=== PATIENT | male | born 1975 | race Asian ===

== ENCOUNTER → 2023-01-19 09:32 | Outpatient (BNVA) | payer OTHER, SELFPAY | PROVIDERS: Visit Provider Physician Assistant ==

== ENCOUNTER 2023-11-02 14:22 | Outpatient (AMB) | payer OTHER, SELFPAY ==
--- NOTE | 2023-11-02 14:24 | HO.SPINEOV ---
Intake Intake Visit Reasons: follow up f/u from Intake Note: Mr. Almeida is here today for a F/u Program Schedule Clerk Required: No Assessment & Plan Assessment & Plan (1) Cervical radiculopathy: Code(s): M54.12 - Radiculopathy, cervical region (2) Cervical myelopathy: Code(s): G95.9 - Disease of spinal cord, unspecified Plan: Mr Almeida is here in follow-up today. This is a gentleman who from our previous note we have been following for what was at the time asymptomatic cervical stenosis. He tells me that since our last office visit, he was doing okay until a few months ago when he started to notice pain going down his arms. It goes into his hands in his hands will go numb. At nighttime he will often feel significant amounts of cramping and numbness in his hands with changing of positions of his neck. Sometimes he will wake up in the morning in his arms will be cramped into position where he has to move them to try to loosen them up. He has noticed numbness of his hands in the morning as well. There also shock-like feelings which go down his body all through his chest and into his legs. On my exam he is has mild hand weakness but no hyperreflexia. I reviewed his imaging at [facility] again. It is almost a year old and it shows significant left-sided spinal cord compression at C3-4, C4-5 as well as moderate to severe stenosis at C5-6. At this point I think we need a new MRI as his symptoms are changing and we need to be sure that there is no new finding the needs to be addressed but I anticipate he is going to get a multilevel surgery, likely anterior cervical fusion. Once the urgent MRI has been completed, I will call him with the results. Total amount of time spent in this visit was 20 minutes in discussion of symptoms, previous cervical MRI imaging results and subsequent plan of care Donaldo Betancourt MD,PhD [facility] Plan see above Orders: Orders MR cervical spine wo con Today G95.9 - Disease of spinal cord, unspecified, M54.12 - Radiculopathy, cervical region Coding Level of Care Code Est Pt Level 3 (90387) Diagnoses Cervical radiculopathy M54.12 Cervical myelopathy G95.9
== END 2023-11-02 14:50 | disposition home or self-care (01) ==
PROVIDERS: Visit Provider Physician Assistant
DX: M54.12 Radiculopathy, cervical region (principal); G95.9 Disease of spinal cord, unspecified
CPT/HCPCS: 99213

== ENCOUNTER → 2023-11-02 14:22 | Outpatient (BNVA) | payer OTHER, SELFPAY | PROVIDERS: Visit Provider Physician Assistant | DX: M54.12 Radiculopathy, cervical region (principal); G95.9 Disease of spinal cord, unspecified; M48.02 Spinal stenosis, cervical region | CPT/HCPCS: 99212 ==

== ENCOUNTER 2023-12-28 11:05 | Outpatient (REF) | payer OTHER, SELFPAY | END 2023-12-28 11:06 | disposition home or self-care (01) | LOC: CF 11:05 | DX: G95.9 Disease of spinal cord, unspecified (principal) | CPT/HCPCS: 99212 ==

== ENCOUNTER 2023-12-28 11:34 | Outpatient (AMB) | payer OTHER, SELFPAY ==
--- NOTE | 2023-12-28 11:36 | A.SPINEOV_ITS ---
Intake Visit Reasons: discuss MRI Intake Note: Mr. Almeida is here today to discuss MRI Director Clinical Pharmacology Required: No Assessment & Plan Assessment & Plan (1) Cervical myelopathy: Code(s): G95.9 - Disease of spinal cord, unspecified Category: Medical Plan Mr Almeida is following up today. Please refer to my previous note for the specifics of the problems. He continues to have numbness of both of his arms with feelings of weakness, now he started to get weakness on the left hand as well as the right. He is still getting the cramping sensations down his arms. Obtained a new MRI done at [facility] and this shows that he has ongoing slightly progressed disc osteophytes and disc herniations at C3-4 and C4-5 causing severe spinal cord compression, primarily on the left. It looks like he may have a component of calcification of his posterior longitudinal ligament as well as there is still some compression behind the body of C4. There is moderate stenosis at C5-6 and C6-7. Although the radiologist is equivocal about his finding, it appears to me he has new cord signal change behind the body of C4 that was not present on his previous MRI done at [facility]. On my exam today he is continuing to demonstrate weakness of his hands but no hyperreflexia. I think this may just be an outlier that he does not have hyperreflexia. There is need here for decompression of the spinal cord. I sat down with the patient and went over his films at length including his old films and explained to him that the progression of his myelopathy from being asymptomatic to now being symptomatic getting slightly worse would generally mean that we would proceed with surgery. Because of the calcifications behind the body of C4, we may need to do a corpectomy. I will review his films with Dr. Betancourt and get back to the patient with a final plan. The patient was counseled that the ultimate goal of surgery would be to prevent him from getting worse but not necessarily guarantee him that he would be able to return to normal function. I highlighted the fact that I would not wait long about making a decision about surgery and that if he starts to experience anymore decline we should expedite things as he is young. The risks and benefits of surgery were discussed with him for consideration of an anterior cervical approach. Total amount of time spent in this visit was 20 minutes in discussion of symptoms, cervical MRI imaging results and subsequent plan of care Donaldo Valenzuelanings MD,PhD [facility] Coding Level of Care Code Est Pt Level 3 (03824) Diagnoses Cervical myelopathy G95.9
== END 2023-12-28 12:11 | disposition home or self-care (01) ==
PROVIDERS: Visit Provider Physician Assistant
DX: G95.9 Disease of spinal cord, unspecified (principal)
CPT/HCPCS: 99213

== ENCOUNTER 2024-01-09 08:35 | Outpatient (REF) | payer OTHER, SELFPAY ==
--- NOTE | ~2024-01-09 | CT_ITS ---
EXAMINATION: CT CERVICAL SPINE WITHOUT CONTRAST CLINICAL INFORMATION: Ossification of posterior longitudinal ligament, surgical planning COMPARISON: MRI of cervical spine on 11/27/2023 at outside facility TECHNIQUE: Multiple 2.0 and 0.6 mm axial images were obtained from base of skull to T1 levels without IV contrast enhancement. Sagittal and coronal 2.0 mm bone window images were reconstructed from axial image data. This CT examination was performed using dose optimization techniques as appropriate, variously including the following: *Automated exposure control *Adjustment of mA and/or kV according to patient size (this includes techniques or standardized protocols for targeted exams where dose is matched to indication/reason for exam; i.e. extremities or head) *Use of iterative reconstruction technique DLP: 566 mGy-cm FINDINGS: C1/C2: Bony structures are intact with normal alignment. There is no spinal stenosis. C2/C3: Bony structures are intact with normal alignment. There is no spinal stenosis. Bilateral C2/C3 neuroforamina are patent. Bilateral apophyseal joints are intact with normal alignment. C3/C4: Bony structures are intact with normal alignment. There is no spinal stenosis. Bilateral C3/C4 neuroforamina are patent. Bilateral apophyseal joints are intact with normal alignment. 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 At superior border of C4, the left posterior ossified posterior longitudinal ligament causes marked spinal stenosis with AP diameter of the spinal canal reduced to 7.8 mm. C4/C5: Bony structures are intact with normal alignment. There is no spinal stenosis. Bilateral C4/C5 neuroforamina are patent. Bilateral apophyseal joints are intact with normal alignment. C5/C6: Bony structures are intact with normal alignment. There is no spinal stenosis. There is marked asymmetric left C5/C6 neuroforaminal stenosis. Bilateral apophyseal joints are intact with normal alignment. Short segment ossification of posterior longitudinal ligament is seen along the posterior border of C6, down to C6-C7 junction, indenting the anterior thecal sac. There is resulting mild spinal stenosis with AP diameter of the spinal canal reduced to 8.9 mm. C6/C7: Bony structures are intact with normal alignment. There is no spinal stenosis. Bilateral C6/C7 neuroforamina are patent. Bilateral apophyseal joints are intact with normal alignment. C7/T1: Bony structures are intact with normal alignment. There is no spinal stenosis. Bilateral C7/T1 neuroforamina are patent. Bilateral apophyseal joints are intact with normal alignment. CT/CT cervical spine wo IV con IMPRESSION: 1. 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 2. At superior border of C4, the left posterior ossified posterior longitudinal ligament causes marked spinal stenosis with AP diameter of the spinal canal reduced to 7.8 mm. 3. Short segment ossification of posterior longitudinal ligament is seen along the posterior border of C6, down to C6-C7 junction, indenting the anterior thecal sac. There is resulting mild spinal stenosis with AP diameter of the spinal canal reduced to 8.9 mm. 4. Marked asymmetric left C5/C6 neuroforaminal stenosis. 5. Findings are similar to the appearance on MRI of cervical spine on 11/27/2023.
== END 2024-01-09 08:36 | disposition home or self-care (01) ==
LOC: HO.CT 08:35
PROVIDERS: Visit Provider Physician Assistant
DX: G95.9 Disease of spinal cord, unspecified (principal)
CPT/HCPCS: 72125

== ENCOUNTER 2024-01-18 10:26 | Outpatient (AMB) | payer OTHER, SELFPAY ==
--- NOTE | 2024-01-18 10:35 | A.SPINEOV_ITS ---
Intake Visit Reasons: CT follow up Intake Note: Mr. Almeida is here today to F/u on CT Results. Still Operator Required: No Assessment & Plan Assessment & Plan (1) Cervical myelopathy: Code(s): G95.9 - Disease of spinal cord, unspecified Category: Medical Plan Mr Almeida came back to review his cervical CT done at [place]. Dr. Betancourt and I reviewed it and believe the best approach would be to do a two-level anterior diskectomy and fusion C3-4 and C4-5 as a posterior corpectomy. We believe that with a [employer] drill we would be able to drill off the edges of the endplates at both levels to be able to obtain enough of a decompression with the calcified disc herniation that we see in both of these disc levels in order to avoid doing a full corpectomy. We updated the patient on the plan. The plan will be for surgery in late May. He understands that if his symptoms progress he should call me and we will move his surgery up. Pt was given risk and benefits of surgery including but not limited to infection, hematoma , nerve injury,durotomy, weakness,bowel/bladder injury, persistent pain, focal hoarse as well as the option to continue with conservative treatment and patient wishes to proceed with surgery. Pt is aware they should stop their motrin, aspirin 7 days prior to surgery. All questions were answered to the best of our ability. If there is anything about this patients medical history that we have overlooked or concerns you have about us proceeding with surgery we would appreciate any input you can offer. Total amount of time spent in this visit was 20 minutes in discussion of symptoms, cervical CT imaging results and subsequent plan of care Donaldo Betancourt MD,PhD [facility] Coding Level of Care Code Est Pt Level 3 (61964) Diagnoses Cervical myelopathy G95.9
== END 2024-01-18 11:18 | disposition home or self-care (01) ==
PROVIDERS: Visit Provider Physician Assistant
DX: G95.9 Disease of spinal cord, unspecified (principal)
CPT/HCPCS: 99213

== ENCOUNTER → 2024-01-18 10:26 | Outpatient (BNVA) | payer OTHER, SELFPAY | PROVIDERS: Visit Provider Physician Assistant | DX: G95.9 Disease of spinal cord, unspecified (principal) | CPT/HCPCS: 99212 ==

== ENCOUNTER 2024-02-19 08:26 | Outpatient (REF) | payer OTHER, SELFPAY | END 2024-02-19 08:27 | disposition home or self-care (01) | LOC: CF 08:26 | DX: Z13.89 Encounter for screening for other disorder (principal) ==

== ENCOUNTER 2024-05-14 10:09 | Inpatient (IN) | payer OTHER, SELFPAY ==
[2024-05-12 13:12] VITALS: BMI 30.7
--- NOTE | 2024-05-13 09:20 | P.CONAN_ITS ---
Documented by User: Shayy Bellamy NP 05/13/24 09:30 HPI - Anesthesia Eval Consult details Narrative: 48yo M for C3-4,C4-5 Ant Cerv Discectomy w/ fusion PMFSH Active Problems Active Problems: All Active Problems Cervical myelopathy (Acute) Cervical radiculopathy (Acute) Past Medical History Medical History (Updated 05/12/24 @ 13:15 by Vibha Alcaraz RN) Hepatitis B Alpha thalassemia trait Fatty liver Elevated cholesterol HTN (hypertension) Benign paroxysmal positional vertigo Cervical myelopathy Cervical radiculopathy Surgical History Surgical History (Updated 05/12/24 @ 13:15 by Vibha Alcaraz RN) Hx of appendectomy Social History Social History (Updated 05/12/24 @ 10:06 by Vibha Alcaraz RN) Are you a primary skin care technician to a significant other at home: No Do you presently have visiting nurse or other home services: No Patient Tobacco Use Status: Never used Tobacco Second Hand Smoke Exposure: No Use of substances other than those prescribed or required for medical reasons: No Have you been hit, kicked, punched, or otherwise hurt by someone within the past year? If so, by whom?: No Are you DNR?: No Advance Directives: No ( is primary contact) Advance Directives Information Provided: Yes (as above noted) Advance Directives on File: No Recently lost weight without trying: No Eating poorly because of decreased appetite: No Nutrition Risks: No Nutritional Risk Poor oral hygiene: No Meds Allergies Allergy/AdvReac Type Severity Reaction Status Date / Time oxycodone Allergy Unknown Vomiting Verified 05/12/24 13:15 Home Medications ?Medication ?Instructions ?Recorded ?Confirmed ?Last Taken ?Type losartan 50 mg tablet 50 mg QAM 05/12/24 05/12/24 Unknown History simvastatin 20 mg tablet 20 mg PO QAM 05/12/24 05/12/24 Unknown History Exam Height,Weight and Vital Signs: Height 5 ft 6 in Weight 86.183 kg Pertinent Lab Results Pertinent Lab Results: CBC and BMP 03/2024 wnl from outside facility Assessment and Plan Assessment Anesthesia Assessment: Chart Reviewed Documented by User: Denisha Marshall MD 05/14/24 12:31 [facility] Past Medical History Medical History (Updated 05/12/24 @ 13:15 by Vibha Alcaraz RN) Hepatitis B Alpha thalassemia trait Fatty liver Elevated cholesterol HTN (hypertension) Benign paroxysmal positional vertigo Cervical myelopathy Cervical radiculopathy Family History Family history of problems with anesthesia: No Surgical History Surgical History (Updated 05/12/24 @ 13:15 by Vibha Alcaraz, DAYNA) Hx of appendectomy History of Problems with Anesthesia: No Social History Social History (Updated 05/12/24 @ 10:06 by Vibha Alcaraz RN) Are you a primary skin care technician to a significant other at home: No Do you presently have visiting nurse or other home services: No Patient Tobacco Use Status: Never used Tobacco Second Hand Smoke Exposure: No Use of substances other than those prescribed or required for medical reasons: No Have you been hit, kicked, punched, or otherwise hurt by someone within the past year? If so, by whom?: No Are you DNR?: No Advance Directives: No ( is primary contact) Advance Directives Information Provided: Yes (as above noted) Advance Directives on File: No Recently lost weight without trying: No Eating poorly because of decreased appetite: No Nutrition Risks: No Nutritional Risk Poor oral hygiene: No Meds Allergies Allergy/AdvReac Type Severity Reaction Status Date / Time oxycodone Allergy Unknown Vomiting Verified 05/12/24 13:15 Home Medications ?Medication ?Instructions ?Recorded ?Confirmed ?Last Taken ?Type losartan 50 mg tablet 50 mg QAM 05/12/24 05/12/24 Unknown History simvastatin 20 mg tablet 20 mg PO QAM 05/12/24 05/12/24 Unknown History Exam Airway Mallampati Class: III (thick neck) TM Dist: >3cm Neck ROM: Full Heart: rrr Lungs: cta Assessment and Plan Assessment Anesthesia Assessment: Anesthesia Plan Discussed Final Anesthetic Review Family History of Problems with Anesthesia: No History of Problems with Anesthesia: No NPO: Yes ASA Class: II Final Preanesthetic Review: No Changes in Pt Med Stat, Meds/Allgs Chart Reviewed and Consent Obtained/Reviewed Patient Risk: Intermediate Procedure Risk: Intermediate Anesthetic Plan Anesthetic Plan: GA Disposition: Standard PACU
[2024-05-14] VITALS (9 sets, daily range): BP systolic 134–162; BP diastolic 87–102; PULSE 58–81; RESP 12–18; TEMP 36.3–36.8; O2SAT 93–99
--- NOTE | ~2024-05-14 | FL_ITS ---
EXAMINATION: INTRAOPERATIVE FLUOROSCOPY CERVICAL SPINE CLINICAL INFORMATION: C3-C5 ACDF COMPARISON: CT cervical spine 01/09/2024. TECHNIQUE: Intraoperative fluoroscopic imaging was provided to Dr. Sidney Betancourt during C3-C5 ACDF. Total radiographic images: 10 Exposure time: 12.8 seconds Dose area product: 0.8926 Gy-cm2 FINDINGS/ FL/FL guidance in OR IMPRESSION: Multiple intraoperative fluoroscopic images and/or radiographs demonstrate stages of C3-C5 ACDF. Please see Dr. Lu's operative note for complete details. Electronically signed by: Rod Jamison MD 05/14/2024 10:30 PM EDT
[2024-05-14] MEDS: methocarbamoL 750 MG TABLET PO (10:30)
[2024-05-14] MEDS: Gabapentin 300 MG CAPSULE PO (10:31)
[2024-05-14] MEDS: Lactated Ringers 1,000 ML 100 ML IVCONT (10:38)
--- NOTE | 2024-05-14 11:25 | MHC.SHP ---
Pre-Procedural Eval Section A - 24 Hr Update-Section A only Date of Service: 05/14/24 The patient is an INPATIENT: No Section B - Complete if H&P > 30 days Chief Complaint: S/P C3-5 ACDF Details of Present Illness: Cervical myelopathy Allergies: Allergies Allergy/AdvReac Type Severity Reaction Status Date / Time oxycodone Allergy Unknown Vomiting Verified 05/12/24 13:15 Review of Systems Sugical H&P ROS: Negative: Constitution, Cardiovascular, Respiratory, Psychiatric, Hem-Onc, Allergic/Immunologic, Gastrointestinal, Genitourinary, Musculoskeletal, Integumentary, Endocrine and Eyes/Ears/Nose/Throat and Yes, Specify: Neurological (Bilateral arm numbness and weakness) Exam Surgical H&P Exam: Normal: HEENT, Normal: Heart, Normal: Lungs, Normal: Extremities, Normal: Abdomen and Normal: Skin and Significant Findings: Neurological (Hyperreflexia, hypoesthesia bilateral arms) Plan I have reviewed the history and physical and performed a pertinent physical examination on my patient. No changes have occurred unless specified. Time Spent With Patient Time: Ten __ minutes.
--- NOTE | 2024-05-14 15:27 | W.PM.OPN ---
Operative Note Operative Note Date of Service: 05/14/24 Narrative: Preoperative Diagnosis: Progressive cervical myelopathy due to C3-4 and C4-C5 spinal cord compression Procedure: C3-C4, C4-C5 Anterior discectomy, arthrodesis and implantation cage ; C3-C5 anterior instrumentation ; local autograft; microscope Informed Consent was obtained for this operation. I have explained the nature, purpose and benefits of the operation. I have discussed the risks and benefit of the operation including possible complications or adverse events with patient/family. Alternative(s) were discussed with the patient with their relative benefits and risks as well as the consequences of not accepting the operation were included in obtaining consent. Surgeon: JOSEPH GREEN MD, PHD Procedure Assisted By: ANGIE Donis Description of Procedure: This 48-year-old male is suffering from progressive cervical myelopathy predominantly involving the arms. An MRI shows severe spinal cord compression C3-C4 and C4-C5. An additional CT scan shows that it mainly involves calcification of the disc and possibly of the posterior longitudinal ligament. Patient is of descent and there are no for increase risk of suffering from OPLL. Patient was made aware that this could result in opening of the dura. The procedure and other complications were explained. The patient was consented. The patient was brought to the operating room and endotracheally intubated. The patient was put in supine position with slight extension of the neck. Prep and drape was done followed by timeout. A mid cervical incision was made followed by opening of the platysma. The prevertebral fascia was reached following the natural planes while the physician special education educational assistant provided manual retraction. The prevertebral fascia was opened to expose the disc space. A spinal needle was placed in the disk space to confirm the correct level with xray. The longus colli muscles were released bilaterally and a self retaining retractor was inserted. An initial diskectomy was done at C3-4 and C4-5 towards the posterior annulus. Then two Yeso pins were placed in the C3 and C4 vertebral bodies and distraction was give over the interspace. The discectomy was completed toward the posterior annulus of the disc. The microscope was brought in. The remainder of the discectomy was completed. The posterior ligament was opened on the right side and resected towards the contralateral side where the bony compression was. Fortunately at this level there was no ossification of the posterior longitudinal ligament and I was able to remove the calcified disc from the spinal cord which resulted in a good decompression of the underlying spinal cord. The resected osteophytes were saved for autograft. Bilateral foraminotomies were done. The endplates were prepared after which a 7 mm cage filled with autograft was inserted into the disc space. A separate attached plate was locked down with 2 x 12 mm screws as anterior instrumentation. Then attention was turned to the C4-C5 level. Yeso pin was placed in the body of C5 and distraction was giving over the interspace. The diskectomy was completed and the posterior longitudinal ligament was opened on the right side S again decompression was more eccentric towards the left side. This time a large osteophyte complex was found producing severe compression of the spinal cord. Carefully I removed the ossification with a 1. And eventually 2. Kerrison. There was a small calcified layer over the ligament which I tried to remove with a 1. Kerrison that resulted in violation of the outer layer of the dura but the benjamín remained intact. There was also ongoing compression in the left caudal corner under the C5 vertebral body. I was able to mostly remove it with a 1. Kerrison and a curved correct. But again ossification of the ligament was encountered an I had to stop to prevent further dural tears. Overall, a sufficient decompression of the spinal cord was obtained. The dural defect was covered with a piece of DuraGen. The endplates were prepared after which a 6 mm cage was inserted filled with autograft. A separate attached plate was locked down with 2 x 12 mm screws is anterior instrumentation. Final x-rays in AP and lateral projection showed a satisfactory position of the implants and anterior instrumentation. The physician special education educational assistant took over. The Yeso pin was removed. Hemostasis was done. He closed the incision in 2 layers with a 3-0 Vicryl. Steri-Strips used to approximate incision. An OpSite with Tegaderm was used to cover the incision. All sponge and needle counts were correct. Patient was extubated and transported in stable is to recovery room. Anesthesia: General Estimated Blood Loss (ml): 35 Duration of Surgery: 2.5 hours Postoperative Plan: Discharge home Complications: None
--- NOTE | 2024-05-14 15:41 | PM.DS ---
DS: Providers Provider Date of Service: 05/14/24 Date of admission: 05/14/24 10:09 Primary care physician: Ascencion Kay MD DS: Summary Time Attestation Discharge Coordination Time (in mins): 15 Quality: Safe Use of Opioids Does Pt have an Active Cancer Diagnosis on the Problem List?: No Quality: Stroke Does the patient have a stroke diagnosis?: No Physical Exam Vital Signs: Vital Signs: Last Vital Signs Temp 97.5 F 05/14/24 10:29 Pulse 58 05/14/24 10:29 Resp 16 05/14/24 10:29 BP 142/97 H 05/14/24 10:29 Pulse Ox 98 05/14/24 10:29 O2 Del Method Room Air 05/14/24 10:29 BMI result Body Mass Index 30.7 Discharge Plan Discharge Anticipated Discharge Date/Time: 05/14/24 15:45 Patient Disposition: Home, Self-Care Discharge Diagnosis: S/P C3-5 ACDF Referrals: Ascencion Kay MD [Primary Care Provider] - 1 Week Discharge Medications: New oxycodone 5 mg tablet 5 mg PO Q6H PRN (Reason: severe pain (scale score 7-10)) Qty: 30 0RF Rx Instructions: Partial Fill upon patient request. Continued losartan 50 mg tablet 50 mg QAM simvastatin 20 mg tablet 20 mg PO QAM Discharge Orders: Discharge Order (Routine); Ordered 05/14/24 Ordered By: Hector Mariscal Diet: Advance to usual diet Activity on Discharge: As tolerated Stand Alone Forms: Patient Portal Discharge page Print Language: [place] Activity Restrictions/Additional Instructions: After your spinal surgery we ask you to observe the following restrictions/guidelines: Activity: It is normal to feel some discomfort as you increase your activity, but that will improve with time. We ask you avoid heavy lifting or acitivities that cause pain. As a general rule, 8lbs is a safe limit for lifting right after surgery. Walk as much as you feel comfortable but not to exhaustion. You will feel extra tired the first few days after surgery. Stay well hydrated. It is OK to walk up and down stairs You may return to driving when you are off narcotics (such as vicodin, oxycodone, dilaudid, etc), and you are back to normal functional capacity. If you have any concerns please check with office before driving. Return to work is specific to each patient and each surgery, so please speak with your doctor/PA at first follow up. Please bring paperwork such as FMLA at that time if you need it filled out. Medications: We recommend you take 1,000mg Tylenol every 8 hours for the first few weeks after surgery, if you do not have any liver issues and can tolerate this medication. Do not exceed 4,000mg daily. We will give you a short supply of narcotics after surgery (usually one weeks worth). If you need more please call the office but do not use more than prescribed. You will need to give our office 48 hours notice if you need narcotics refilled and we do not fill narcotics on weekends or evenings. If you are on a narcotic, it is a good idea to take a stool softener such as colace or senna to avoid constipation If you take blood thinner such as aspirin, Plavix, Coumadin, Effient, Eliquis etc for conditions such as Afib, DVT, Pulmonary embolus, coronary disease, stents etc please speak with your surgeon about specific details as to when you can resume these medications. You can resume NSAIDs on post op day 1 (eg: Motrin, Naproxen, etc). Follow up: Please call the office, , after surgery to arrange a 3 week follow up for wound check. Wound Care: You may remove your dressing on the first day after surgery. ?You may ?leave open to air. Please do not remove the steri strips underneath. they will fall off on their own in one week. IT IS NORMAL FOR THE WOUND TO OOZE OR BE BLOODY FOR A FEW DAYS AFTER SURGERY. ?IF THIS HAPPENS JUST PLACE NEW DRESSING OVER IT TO AVOID STAINING CLOTHES. You may shower on post op day # 1 We ask that you do not let the water soak the wound. If it does get wet, just towel dry lightly. Please do not scrub your incision or place any type of chemical/ointment on the wound. No tub baths, pools or jacuzzis for one month. If you have any leaking or redness from your wound, or fevers, please call the office. YOU HAD A SMALL SPINAL FLUID LEAK SEEN AT THE TIME OF SURGERY. IT IS NORMAL TO EXPERIENCE MILD HEADACHES WHEN THIS HAPPENS. IF YOU EXPERIENCE SEVERE HEADACHES PLEASE CALL OUR OFFICE TO UPDATE US. USUALLY IT WILL GO AWAY IF YOU STAY FLAT IN BED FOR A DAY. IF YOU EXPERIENCE ANY LEAKING FROM YOUR WOUND WHICH LOOKS LIKE CLEAR WATER, WE ASK THAT YOU CALL US RIGHT AWAY. [phone] Care Plan Goals: RETURNED TO NORMAL ACTIVITY TOLERATED Health Concerns: NONE Plan of Treatment: FOLLOW-UP IN CLINIC IN 2-3 WEEKS Assessment: THE PATIENT IS STABLE STATUS POST C3-5 ACDF. SEE INSTRUCTIONS ABOVE.
[2024-05-14] MEDS: 0.9 % Sodium Chloride 1,000 ML 75 ML IVCONT (17:48)
[2024-05-14] MEDS: ceFAZolin Sodium/Dextrose,Iso 2 GM/50 ML PIGGYBACK IV (17:48)
[2024-05-14] MEDS: Losartan Potassium 50 MG TABLET PO (18:39)
[2024-05-14] MEDS: Atorvastatin Calcium 10 MG TABLET PO (18:39)
[2024-05-14] MEDS: HYDROmorphone HCl 1 MG/ML SYRINGE IVPUSH (19:51)
[2024-05-14] MEDS: Acetaminophen 325 MG TABLET 975 MG PO (19:54)
[2024-05-14] MEDS: Docusate Sodium 100 MG CAPSULE PO (21:19)
[2024-05-14] MEDS: ondansetron HCL 4 MG/2 ML VIAL IVPUSH (23:56)
[2024-05-15 00:11] VITALS: BP 149/93; PULSE 67; RESP 17; TEMP 36.3; O2SAT 98
[2024-05-15 03:51] VITALS: BP 158/94; PULSE 68; RESP 17; TEMP 36.9; O2SAT 100
[2024-05-15] MEDS: 0.9 % Sodium Chloride 1,000 ML 75 ML IVCONT (06:09)
--- NOTE | 2024-05-15 07:17 | PHA.MEDREC ---
Pharmacy Consult ? Medication Reconciliation Pharmacy has completed the medication reconciliation. Reviewed med rec done by nursing, matched claim history
[2024-05-15 07:43] VITALS: BP 142/85; PULSE 72; RESP 18; TEMP 36.8; O2SAT 97
--- NOTE | 2024-05-15 09:10 | HO.NEURO.PN ---
Neurosurgery Operative Note Date of Service: 05/15/24 Narrative: POD: 1 Procedure: C3-5 ACDF Thomas was seen this morning sitting upright on the side of his bed eating breakfast with his significant other. He reports that he feels well from surgery, however does have some weakness in his right upper extremity, which is his baseline per previous office notes. He states that his right upper extremity feels good. He denies any shooting radicular pains. He denies any headache, dizziness or lightheadedness. He does state that he had 1 episode of emesis yesterday, however he attributes this to the narcotic pain medication. He reports he has been up out of bed he is to bathroom, and is tolerating his diet. Afebrile, vital signs stable. 3-4/5 strength in RUE, worse with interossei testing. 5/5 strength in LUE diffusely. Anterior dressing has some staining without signs of hematoma. No active sanguineous drainage. Area is dry. Plan: Patient meets criteria to be medically discharged home. This was discussed with the attending neurosurgeon Dr. Betancourt. The patient was provided with all information related to symptoms and red flag concerns s/p durotomy (see guidelines at bottom of DC summary). He understands and agrees to the plan to DC home today. A prescription for hydrocodone was sent to his pharmacy as the patient is unable to tolerate oxycodone well. I also sent in ondansetron to help with nausea/vomiting. Hector Betancourt MD,PhD [facility]
[2024-05-15] MEDS: Acetaminophen 325 MG TABLET 975 MG PO (09:23)
[2024-05-15 09:24] VITALS: BP 142/85
[2024-05-15] MEDS: Docusate Sodium 100 MG CAPSULE PO (09:24)
[2024-05-15] MEDS: Atorvastatin Calcium 10 MG TABLET PO (09:24)
[2024-05-15] MEDS: Losartan Potassium 50 MG TABLET PO (09:24)
[2024-05-15] MEDS: HYDROcodone Bit/Acetam 5/325 TABLET 1 TAB PO (10:37)
[2024-05-15] MEDS: Ondansetron ODT 4 MG TAB.RAPDIS TRANSLINGU (10:38)
--- NOTE | 2024-05-15 11:03 | MHC.CM.PN ---
PT REPORTS HE LIVES WITH HIS S/O AND IS INDEPENDENT WITH CARE HE HAS NO DME AND NO SERVICES HE COMPLETED A HCP TODAY, NAMING HIS S/O, MARAL, HIS AGENT PCP: CLIFFORD SHERMAN PT WILL DC HOME TODAY WITH NO SERVICES VIA PRIVATE TRANSPORT
--- NOTE | 2024-05-15 13:29 | HO.POSTANES ---
Post Anesthesia Evaluation Post Anesthesia Evaluation Date of Service: 05/14/24 Vital Signs: Vital Signs Temp Pulse Resp BP Pulse Ox O2 Del Method O2 Flow Rate 05/15/24 09:24 142/85 H 05/15/24 07:43 98.3 F 72 18 142/85 H 97 Room Air 05/15/24 03:51 98.4 F 68 17 158/94 H 100 Nasal Cannula 1 Anesthesia: General Endotracheal-GETA Mental Status: Awake Pain Control: Satisfactory Nausea/Vomiting: None Hydration: Adequate Anesthesia-Related Issues: No Anes. Related Issues
== END 2024-05-15 10:58 | disposition home or self-care (01) | DRG 23 ==
LOC: HO.SSSA 10:11 → HO.S3 16:52
PROVIDERS: Neurological Surgery; Admitting Provider Physician Assistant; PCP Internal Medicine; Visit Provider Physician Assistant
PROC: 0RG20A0 Fusion of 2 or more Cervical Vertebral Joints with Interbody Fusion Device, Anterior Approach, Anterior Column, Open Approach (ICD-10-PCS; principal; 2024-05-14 12:30)
DX: G95.20 Unspecified cord compression (principal); D56.3 Thalassemia minor; Z79.899 Other long term (current) drug therapy
CPT/HCPCS: C1713; C1763; C1889; J0131; J0690; J1100; J1170; J2250; J2405; J2704; J3010

== ENCOUNTER → 2024-05-14 10:09 | Outpatient (BNV) | payer OTHER, SELFPAY | PROVIDERS: Admitting Provider Physician Assistant; PCP Internal Medicine; Visit Provider Neurological Surgery | DX: Z48.89 Encounter for other specified surgical aftercare (principal) | CPT/HCPCS: 20936; 22551; 22552; 22845; 22853; 99024; 99499 ==

== ENCOUNTER 2024-06-04 13:36 | Outpatient (AMB) | payer OTHER, SELFPAY ==
--- NOTE | 2024-06-04 13:38 | A.SPINEOV_ITS ---
Intake Visit Reasons: 1st post op Intake Note: Mr. Almeida is here today for his 1st post-op appointment. J2Ee Application Developer Required: No Allergies oxycodone Allergy (Unknown, Verified 06/04/24 13:38) Vomiting Assessment & Plan Assessment & Plan (1) Cervical myelopathy: Code(s): G95.9 - Disease of spinal cord, unspecified Category: Medical Plan Procedure: C3-C4, C4-C5 ACDF Thomas comes in today for his 1st postoperative visit. To recap he was initially seen for bilateral arm numbness and longstanding hand weakness on the right, accompanied by newer onset hand weakness on the left. Additionally, he reported a shooting pain from his right neck down the right shoulder. Today, he reports he is very satisfied with the surgery. He is beginning to make progress in regards to his numbness/weakness. He feels his left arm has largely recovered since the surgery. He has better strength in his right hand. He still has quite a bit of numbness in his right arm, and does still report the shooting pain from his right neck down the right shoulder, but he believes he is making progress day by day. He asked several questions regarding his surgery and the postoperative healing course, all of which I answered to the best of my ability. No new neurological deficits. Patient is able to ambulate well, rises from a seated position without difficulty. Anterior Incision site is closed, well healing, with no signs of drainage. We will follow-up with the patient in 6 weeks for their 2nd postoperative visit. At that time we will get x-rays to review with the patient. Hector Betancourt MD,PhD [facility] Coding Level of Care Code Global (35299) Diagnoses Cervical myelopathy G95.9
== END 2024-06-04 14:06 | disposition home or self-care (01) ==
PROVIDERS: PCP Internal Medicine; Visit Provider Physician Assistant
DX: G95.9 Disease of spinal cord, unspecified (principal)
CPT/HCPCS: 99024

== ENCOUNTER → 2024-06-04 13:36 | Outpatient (BNVA) | payer OTHER, SELFPAY | PROVIDERS: PCP Internal Medicine; Visit Provider Physician Assistant | DX: Z48.89 Encounter for other specified surgical aftercare (principal); G95.9 Disease of spinal cord, unspecified; Z98.890 Other specified postprocedural states | CPT/HCPCS: 99212 ==

== ENCOUNTER 2024-07-14 15:13 | Outpatient (REF) | payer OTHER, SELFPAY | END 2024-07-14 15:14 | disposition home or self-care (01) | LOC: HO.HOSX 15:13 | PROVIDERS: Visit Provider Physician Assistant | DX: Z13.89 Encounter for screening for other disorder (principal) ==

== ENCOUNTER 2024-07-15 13:21 | Outpatient (AMB) | payer OTHER, SELFPAY ==
--- NOTE | 2024-07-15 13:22 | A.SPINEOV_ITS ---
Intake Visit Reasons: 2nd post op with xrays Intake Note: Mr. Almeida is here today for his 2nd post op with x-rays. Pensions Retirement Plan Specialist Required: No Allergies oxycodone Allergy (Unknown, Verified 07/15/24 13:44) Vomiting Assessment & Plan Assessment & Plan (1) S/P spinal fusion: Code(s): Z98.1 - Arthrodesis status Category: Surgical Plan Procedure: C3-5 ACDF Thomas comes in today for his 2nd postoperative visit. He reports that he has been doing very well since his surgery and has been able to make slow but meaningful progress. He reports increased strength of his right upper extremity incomplete resolution of his left-sided symptoms. He does still have quite a bit of tightness in his bilateral shoulders and sometimes struggles with pain in his bilateral shoulders, but has maintained a positive attitude and continued to engage in physical activity to the best of his ability. He obtained a set of x- rays during this visit today which we reviewed together. His x-ray show stable placement of the surgical instrumentation with no changes from fluoroscopy. He asked several questions regarding the postoperative healing course all of which I answered to the best of my ability. No new neurological deficits. Patient is able to ambulate well, rises from a seated position without difficulty. Incision site is closed, well healing, with no signs of drainage. I would like to send down for a course of occupational therapy to help strength in his upper extremities and improve his dexterity as he is an avid proposition player. He is agreeable to this and I will send him to our colleagues here at [facility]. He may make a follow-up appointment in the next 1-2 [facility] if he feels his symptoms are not making good progress. Hector Betancourt MD,PhD [facility] Orders: Orders XR cervical spine 2V Today Z98.1 - Arthrodesis status OT Evaluation and Treatment Today Z98.1 - Arthrodesis status Coding Level of Care Code Global (58413) Diagnoses S/P spinal fusion Z98.1
== END 2024-07-15 14:12 | disposition home or self-care (01) ==
PROVIDERS: PCP Internal Medicine; Visit Provider Physician Assistant
DX: Z98.1 Arthrodesis status (principal)
CPT/HCPCS: 99024

== ENCOUNTER 2024-07-15 13:21 | Outpatient (REF) | payer OTHER, SELFPAY ==
--- NOTE | ~2024-07-15 | XR_ITS ---
EXAMINATION: XR CERVICAL SPINE CLINICAL INFORMATION: Arthrodesis status Z98.1. COMPARISON: XR Cervical spine 11/27/2022 TECHNIQUE: 2 views of the cervical spine were obtained. FINDINGS: Status post anterior fusion and arthrodesis of C3, 4, 5. Hardware is intact. The prevertebral soft tissues are unremarkable. Lung apices are clear. XR/XR cervical spine 2V IMPRESSION: Status post anterior fusion and arthrodesis of C3, 4, 5. No evidence of complication. Electronically signed by: Francisco Chand MD 08/28/2024 11:18 AM MICHAEL
== END 2024-07-15 13:22 | disposition home or self-care (01) ==
LOC: HO.HOSX 13:21
PROVIDERS: PCP Internal Medicine; Visit Provider Physician Assistant
DX: Z98.1 Arthrodesis status (principal)
CPT/HCPCS: 72040; 99212

== ENCOUNTER 2024-08-13 09:05 | Outpatient (RCR) | payer OTHER, SELFPAY ==
--- NOTE | 2024-07-23 09:46 | MHC.OT.EP ---
[address] [phone] Occupational Therapy Plan of Care Patient Name: Thomas Almeida Date of Evaluation: 07/23/24 Diagnosis: B UE weakness Pain Location: R UE - neck Pain Score: 8 Pain Scale Used: Numeric (0 - 10) Aggravating Factors: Alleviating Factors: Assessment: Pt is a 48 yr old R hand dominant male who had cervical spinal fusion surgery in May of 2024( c4/c5). Pt reports improvement in sx's since his surgery but reports tightness in R side of his neck, and numbness/ tingling in B hands. His major concern is B hand weakness and dexterity (pt reports dropping things)He presents today w/ full AROM of his B UE's WNL sensation of his B hand, and a floor coverer of R: 20 lbs. L: 40 lbs. Pt would benefit from skilled OT therapy to increase B UE stability and strength to increase the functional use of his B hands Frequency and Duration: The patient will be seen 2xs a week for 4 weeks Short Term Goals: Pt will be complaint w/ his HEP Pt will increase his R hand floor coverer to 30lbs Pt will report an increased ability to write w/ out difficulty Drive Away Driver Goals: Pt will report playing tennis w/ minimal difficulty Pt will report using his R hand to carry groceries w/ out difficulty Pt will increase R hand floor coverer to 40 lbs Treatment Plan: Therapeutic Exercise Therapeutic Activity Home Exercise Program Neuro Re-ed Patient Education Desensitization/Sensory Re-ed Edema Control ADL Training Fluidotherapy MHP Cold Packs Joint Mobilization Soft Tissue Mobilization Kinesiotaping Electronically Signed By: Nadine Doran OTR/L Please Sign and return to therapist. Thank you once again for your referral.
--- NOTE | 2024-10-24 09:35 | MHC.OT.DC ---
[address] [phone] F: [phone] Occupational Therapy Discharge Note Patient Name: Thomas Almeida Provider: Hector Mariscal Diagnosis: B UE weakness Date of Surgery: 05/14/24 Date of Evaluation: 07/23/24 Date of Discharge: Treatments to Date: 5 Cancellations to Date: No Shows to Date: Discharge Status: Visit Non-compliance Discharge Summary: Pt tolerated therapy well today; he is still over working his R UE and we agreed to decrease resistance of exercises to decrease R shoulder pain. He is going to take the next 2 weeks off from therapy due to his going to [place] and needing to be home w/ family - LAST NOTE 2+ MOS. AGO. PT DID NOT FOLLOW UP Electronically Signed By: Nadine Doran OTR/L Reviewed/agree with student documentation: N/A Therapist: Please Sign and return to therapist, thank you for your referral.
== END 2024-10-24 09:35 | disposition home or self-care (01) ==
LOC: HO.OT 09:05
PROVIDERS: PCP Internal Medicine; Visit Provider Physician Assistant
DX: Z98.1 Arthrodesis status (principal)
CPT/HCPCS: 97110; 97166

== ENCOUNTER 2024-11-13 14:27 | Outpatient (REF) | payer OTHER, SELFPAY ==
--- NOTE | ~2024-11-13 | XR_ITS ---
EXAMINATION: XR CERVICAL SPINE CLINICAL INFORMATION: G95.9 - Disease of spinal cord, unspecified; arthrodesis status. COMPARISON: 07/15/2024. CT C-spine 01/09/2024. TECHNIQUE: 4views of the cervical spine, inclusive of flexion and extension views, were obtained. FINDINGS: There is no scoliosis. There is a minimal reversal of the normal lordosis centered at C5. There has been anterior fusion and discectomy of C3-4 and C4-5 with disc prostheses and oblique endplate screws. Hardware appears intact, well seated, without definite loosening. There are no fractures, compression deformities, or suspicious bone lesions. Craniocervical junction and C1-2 articulation are intact and aligned. There is a trace 2 mm degenerative retrolisthesis of C5 on C6. Facets are normally aligned without significant facet arthrosis. Discs demonstrate mild degeneration at the nonoperative levels. On flexion exam, there is no change in the alignment of the spine. On extension exam, there is no change in the alignment of the spine. There is no evidence of instability. The prevertebral and paravertebral soft tissues are normal. The lung apices are clear. XR/XR cervical spine 4V IMPRESSION: 1. No acute findings of the cervical spine. 2. Mild disc degeneration at the nonoperative levels. This is most significant at C5-6. 3. Intact arthrodesis at C3-4 and C4-5 without complication. 4. There is no evidence of instability on flexion and extension views. Electronically signed by: Ruperto Solomon MD 11/14/2024 11:32 AM EDT
== END 2024-11-13 14:28 | disposition home or self-care (01) ==
LOC: HO.HOSX 14:27
PROVIDERS: PCP Internal Medicine; Visit Provider Physician Assistant
DX: G95.9 Disease of spinal cord, unspecified (principal); Z98.1 Arthrodesis status
CPT/HCPCS: 72050; 99212

== ENCOUNTER 2024-11-13 14:27 | Outpatient (AMB) | payer OTHER, SELFPAY ==
--- NOTE | 2024-11-13 14:29 | A.SPINEOV_ITS ---
Intake Visit Reasons: R hand weakness sx 05/14/24 Intake Note: Mr. Almeida is here today c/o hand weakness and numbness. 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 He is very pleased with how the surgery went. He is significantly stronger in his arms in his hands and he was before surgery. He still does get some numbness and feels a little bit of weakness. He is resuming most of his activities. I did x-rays today and these look excellent. He still has some mild hand weakness on exam but otherwise his strength is excellent, gait is normal. At this point he has no restrictions and he can see us back on an as-needed basis. I told him it was okay to return to work and he can do lifting if needed. Total amount of time spent in this visit was 20 minutes in discussion of symptoms, cervical x-rays imaging results and subsequent plan of care Donaldo Betancourt MD,PhD [facility] Orders: Orders XR cervical spine 4V Today G95.9 - Disease of spinal cord, unspecified Coding Level of Care Code Est Pt Level 3 (55010) Diagnoses Cervical myelopathy G95.9
--- OUTSIDE RECORDS SUMMARY | 2024-11-13 18:19 | XMS_ITS | Clinical Summary ---
Author Organization [facility] Address [address] [place] [address] Care Team Providers Care Osteologist Name Role Phone Ascencion Kay MD Primary Care Provider [phone] Allergies Active Allergy Reactions Criticality Noted Date Comments Oxycodone-Acetaminophen 10/23/2013 Medications simvastatin (ZOCOR) 20 mg tablet TAKE 1 TABLET ONCE DAILY AT BEDTIME 90 tablet 2 08/05/2024 Active losartan (COZAAR) 50 mg tablet TAKE 1 TABLET ONCE DAILY 90 tablet 2 08/05/2024 Active ferrous sulfate (IRON ORAL) Take by mouth daily. Active RED YEAST RICE ORAL Take 1 tablet by mouth daily. Active Active Problems Problem Noted Date Diagnosed Date Benign paroxysmal positional vertigo 12/08/2016 Hyperlipidemia 10/03/2016 Hypertension 10/03/2016 Carpal tunnel syndrome 05/18/2016 Fatty liver 12/20/2009 Thalassemia 05/14/2007 Immunizations Name Administration Dates Next Due Td Tetanus diptheria (Tdvax) 7yo and older 05/10 Surgical History Surgery Date Site/Laterality Comments APPENDECTOMY PROCEDURE: HISTORICAL APPENDECTOMY Medical History Medical History Date Comments Other thalassemia (CMS/HCC) 05/14/2007 DX:O ther thalassemia (HCC) Benign paroxysmal positional vertigo 12/08/2016 DX:Benign paroxysmal positional vertigo Carpal tunnel syndrome 05/18/2016 DX:Carpal tunnel syndrome Fatty liver 12/20/2009 DX:Fatty liver History of gastritis 10/31/2013 DX:History of gastritis; COMMENT: D/t H. Pylori Hyperlipidemia 10/03/2016 DX:Hyperlipidemi a Hypertension 10/03/2016 DX:Hypertension Elevated liver enzymes DX:Elevat ed liver enzymes Diabetes (CMS/HCC) DX:Diabetes ( HCC) Family History Relation Name Status Comments Father Alive DM, HTN, stroke Mother Alive Dm, HTN Social History Tobacco Use Types Packs/Day Years Used Date Smoking Tobacco: Never Smokeless Tobacco: Never Alcohol Use Standard Drinks/Week Comments No 0 (1 standard drink = 0.6 oz pur e alcohol) Sex and Gender Information Value Date Recorded Sex Assigned at Not on file Legal Sex Male 2:52 PM EST Gender Identity Not on file Sexual Orientation Not on file Obstetrics History Last Filed Vital Signs Vital Sign Reading Time Taken Comments Blood Pressure 136/80 06/05/2024 10:23 AM EDT Sitting L Arm Pulse 75 06/05/2024 10:23 AM EDT Temperature - - Respiratory Rate - - Oxygen Saturation - - Inhaled Oxygen Concentration - - Weight 83.6 kg (184 lb 3.2 oz) 06/05/2024 10:23 AM EDT Height 167.6 cm (5' 6 ) 03/28/2024 8:57 AM EDT Body Mass Index 29.73 03/28/2024 8:57 AM EDT Plan of Treatment Upcoming Encounters Date Type Department Care Team (Late st Contact Info) Description 12/04/2024 11:00 AM EDT Office Visit Internal Medicine - [place] [address] [facility] [address] [place] [phone] Ascencion Kay MD [address] [facility] [address] [place] [address] Health Maintenance Due Date Last Done Comments Hepatitis B Vaccines (1 of 3 - 19+ 3-dose series) 1993 Pneumococcal Vaccine: 50+ Years (1 of 2 - PCV) 1993 Pneumococcal Vaccine: Pediatrics (0 to 5 Years) and At-Risk Patients (6 to 64 Years) (1 of 2 - PCV) 1993 DTaP,Tdap,and Td Vaccines (2 - Td or Tdap) 05/10/2016 05/10/2006 Colorectal Cancer Screening: Colonoscopy 10/02/2023 Depression Screening 10/02/2023 HIV Screening 10/02/2023 Social Influencers of Health Screening 10/02/2023 COVID-19 Vaccine ( - 2023-2 5 season) 2024 Influenza Vaccine (#1) 2024 Zoster Vaccines (1 of 2) 2024 Hypertension/CHF/CAD Annual BMP Blood Test 03/31/2025 03/31/2024, 03/31/2024 Cholesterol Screening (Lipid Panel) 03/31/2029 03/31/2024, 03/31/2024 Hepatitis C Screening Completed 10/12/2023 HIB Vaccines Aged Out No longer eligi ble based on patient's age to complete this topic HPV Vaccines Aged Out No longer eligi ble based on patient's age to complete this topic Hepatitis A Vaccines Aged Out No long er eligible based on patient's age to complete this topic IPV Vaccines Aged Out No longer eligi ble based on patient's age to complete this topic MMR Vaccines Aged Out No longer eligi ble based on patient's age to complete this topic Meningococcal ACWY Vaccine Aged Out N o longer eligible based on patient's age to complete this topic Meningococcal B Vacine Aged Out No lo nger eligible based on patient's age to complete this topic RSV Immunization Patients Under 20 months Aged Out No longer eligible b ased on patient's age to complete this topic Varicella Vaccines Aged Out No longer eligible based on patient's age to complete this topic Procedures Procedure Name Priority Date/Time Associated Diagnosis Comments EXTERNAL DIABETIC RETINA EYE EXAM 10/30/2024 ANNUAL BMP BLOOD TEST Routine 03/31/2024 LIPID PANEL Routine 03/31/2024 HEPATITIS C SCREENING Routine 10/12/2023 from Last 3 Months or Most Recently Relevant to Health Maintenance Results * External Diabetic Retina Eye Exam Report (10/30/2024) Anatomical Region Laterality Modality Ultrasound Provider [facility] US PROCEDURES Final Result * Annual BMP Blood Test (03/31/2024) Pathologist [facility] Annual BMP Blood Test Abstracted [facility] Provider HEALTH MAINTENANCE Final Result * (ABNORMAL) Lipid panel (03/31/2024) LDL/HDL Ratio 5(A) 0 - 4 Triglycerides 147 0 - 150 mg/dL Cholesterol 214(A) 0 - 200 mg/dL HDL 45 >=40 mg/dL LDL Cholesterol 140(A) 0 - 100 mg/dL Blood Venous blood specimen / Unknown Historical Provider LAB BLOOD ORDERABLES Farideh l Result * Hepatitis C Screening (10/12/2023) Pathologist [facility] Hepatitis C Screening Abstracted Historical Provider HEALTH MAINTENANCE Final Result from Last 3 Months or Most Recently Relevant to Health Maintenance Care Teams Osteologist Relationship Specialty Start Date End Date Ascencion Kay MD [address] [place] [address] PCP - General 10/20/22
== END 2024-11-13 15:19 | disposition home or self-care (01) ==
LOC: HO.HNS 14:28
PROVIDERS: PCP Internal Medicine; Visit Provider Physician Assistant
DX: G95.9 Disease of spinal cord, unspecified (principal)
CPT/HCPCS: 99213

== ENCOUNTER → 2024-11-13 14:58 | Outpatient (BNV) | payer OTHER, SELFPAY | PROVIDERS: PCP Internal Medicine; Visit Provider Radiology Diagnostic Radiology | DX: G95.9 Disease of spinal cord, unspecified (principal); M50.30 Other cervical disc degeneration, unspecified cervical region; Z98.1 Arthrodesis status | CPT/HCPCS: 72050 ==